=== PATIENT | male | born 1985 | race Caucasian/White ===

== ENCOUNTER 2016-12-20 22:45 | Emergency (ER) | payer MEDICAID ==
[~2016-12-20] VITALS: Ht 177.8 cm; Wt 85.4 kg
[2016-12-21 00:14] VITALS: BP 138/84
== END 2016-12-21 08:02 | disposition left against medical advice (07) ==
LOC: ER 22:45
DX: R51 Headache (principal); Z53.21 Procedure and treatment not carried out due to patient leaving prior to being seen by health care provider

== ENCOUNTER 2017-10-03 20:00 | Emergency (ER) | payer MEDICAID ==
[~2017-10-03] VITALS: Ht 177.8 cm; Wt 87.0 kg
[2017-10-03] MEDS ORDERED: IBUPROFEN 600MG TABLET PO ONE (23:15)
[2017-10-04 01:27] VITALS: BP 128/80
== END 2017-10-04 01:28 | disposition home or self-care (01) ==
LOC: ER 22:09
DX: M25.571 Pain in right ankle and joints of right foot (principal); V00.131A Fall from skateboard, initial encounter; Y93.51 Activity, roller skating (inline) and skateboarding; Y92.89 Other specified places as the place of occurrence of the external cause; Y99.8 Other external cause status
CPT/HCPCS: 73610; 99284

== ENCOUNTER 2021-01-21 19:49 | Emergency (ER) | payer SELFPAY ==
[~2021-01-21] VITALS: Ht 177.8 cm; Wt 100.0 kg
[2021-01-21] MEDS ORDERED: ACETAMINOPHEN 325MG TABLET PO ONE (22:00)
[2021-01-21] MEDS ORDERED: LIDOCAINE HCL 1% 20ML VIAL (Pyxis) INJ INFIL NR (23:00)
[2021-01-21] MEDS ORDERED: LIDOCAINE HCL/PF 1% 10 MG/ML 30ML VIAL INFIL ONE (23:00)
[2021-01-22 00:32] VITALS: BP 145/86
== END 2021-01-22 00:35 | disposition home or self-care (01) ==
LOC: ER 19:49
DX: S63.125A Dislocation of interphalangeal joint of left thumb, initial encounter (principal); S00.531A Contusion of lip, initial encounter; V00.131A Fall from skateboard, initial encounter; Y93.51 Activity, roller skating (inline) and skateboarding; Y92.488 Other paved roadways as the place of occurrence of the external cause
CPT/HCPCS: 26770; 73110; 73130; 73140; 99284; J3490; Z7610